=== PATIENT | female | born 1980 | race Caucasian/White ===

== ENCOUNTER → 2019-08-02 | Outpatient (CLI) | payer OTHER ==
--- NOTE | 2019-08-02 12:38 | CT ---
EXAMINATION TYPE: CT abdomen pelvis w con DATE OF EXAM: 08/02/2019 COMPARISON: 07/16/2014 HISTORY: left flank pain CT DLP: 895.1 mGycm Automated exposure control for dose reduction was used. CONTRAST: CT scan of the abdomen pelvis is performed with IV Contrast, patient injected with 100 mL of Isovue 3 00. FINDINGS- LUNG BASES- No significant abnormality is appreciated. LIVER/GB-gallbladder surgically absent.. PANCREAS- No gross abnormality is seen. SPLEEN- No gross abnormality is seen. ADRENALS- No gross abnormality is seen. KIDNEYS/BLADDER- no hydronephrosis, nephrolithiasis or renal mass. BOWEL-bowel gas pattern nonspecific. Rounded attenuation within the stomach most likely related retai loy content. There is gastric symptoms consider direct visualization. Appendix normal. LYMPH NODES- No greater than 1cm abdominal or pelvic lymph nodes areappreciated. Shotty adenopathy i n the periportal region noted with 1 pathologic size node measuring 1.1 cm. OSSEOUS STRUCTURES- No significant abnormality is seen. OTHER- aorta of normal caliber. No free fluid or free air. IMPRESSION- 1. No definite acute process. There is a rounded density within the stomach which may represent gastr ic content rather than mucosal lesion. Consider direct visualization. There is periportal shotty laurel opathy with a single lymph node measuring greater than a centimeter in the periportal and peripancrea tic region. 2. Postcholecystectomy changes.
== END | disposition home or self-care (01) ==
LOC: RADCTMAIN 09:49
PROVIDERS: ATTEND Family Medicine
DX: K31.89 Other diseases of stomach and duodenum (principal); R59.9 Enlarged lymph nodes, unspecified; Z90.49 Acquired absence of other specified parts of digestive tract; N80.9 Endometriosis, unspecified
CPT/HCPCS: 74177; Q9967

== ENCOUNTER → 2019-08-30 | Outpatient (CLI) | payer OTHER ==
[2019-08-30 11:03] LABS: Basophils # (A) 0.1 k/uL (0-0.2); Basophils % (A) 1 %; Eosinophils # (A) 0.2 k/uL (0-0.7); Eosinophils % (A) 3 %; HGB 12.4 gm/dL (11.4-16.0); Lymphocytes # (A) 1.5 k/uL (1.0-4.8); Lymphocytes % (A) 32 %; MCHC 32.6 g/dL (31.0-37.0); MCV 94.8 fL (80.0-100.0); Mean Platelet Volume 7.9; Monocytes # (A) 0.3 k/uL (0-1.0); Monocytes % (A) 6 %; Neutrophils # (A) 2.5 k/uL (1.3-7.7); Neutrophils % (A) 56 %; Platelet Count 191 k/uL (150-450); RBC 4.01 m/uL (3.80-5.40); RDW 13.1 % (11.5-15.5); WBC 4.5 k/uL (3.8-10.6)
[2019-08-30 18:23] LABS: ALT 49 U/L (8-44); AST 51 U/L (13-35); African American GFR (CKD) 92.7 (60.0-200.0); Alkaline Phosphatase 97 U/L (41-126); Bilirubin, Conjugated <0.20 mg/dL (0.20-0.40); Globulin 2.5 g/dL (1.6-3.3); Total Bilirubin 0.3 mg/dL (0.2-1.2); Total Protein 6.5 g/dL (6.2-8.2)
[2019-08-30 20:30] LABS: INR 0.92 (0.90-1.11); Prothrombin Time 9.9 sec (9.9-11.9)
== END ==
LOC: LABWHC1 09:37
PROVIDERS: ATTEND Physician Assistant
DX: B18.2 Chronic viral hepatitis C (principal)
CPT/HCPCS: 36415; 80076; 82565; 85025; 85610; 87522

== ENCOUNTER → 2019-10-08 | Day surgery (SDC) | payer OTHER ==
[2019-10-03 11:43] VITALS: BMI 38.7
[~2019-10-08] MED LIST: LACTATED RINGERS 1,000 ML IV SCH; LIDOCAINE 1% (10MG/ML) FOR IV START INTRADERMA PRN; LIDOCAINE 1% INJ 10MG/ML (20 ML MDV) ONE; PROPOFOL 10 MG/ML 20 ML VIAL IV ONE
[2019-10-08 10:09] VITALS: TEMP 97.5
--- NOTE | 2019-10-08 10:38 | P.GSHP ---
History of Present Illness H&P Date: 10/08/19 Chief Complaint: Epigastric pain 38-year-old female here today for upper endoscopy. Patient describes burning sharp pain in the epigastric region. Nonradiating. History of previous cholecystectomy. Takes antiacids daily for reflux. Recent CAT scan showed possible gastric lesion. Past Medical History Past Medical History: GERD/Reflux Additional Past Medical History / Comment(s): current abd pain, and diarrhea, states has "a shadow on MRI" states had pre CA cells prior to hysterectomy History of Any Multi-Drug Resistant Organisms: None Reported Past Surgical History: Cholecystectomy, Hysterectomy, Orthopedic Surgery Additional Past Surgical History / Comment(s): rt knee scope, Past Anesthesia/Blood Transfusion Reactions: No Reported Reaction Smoking Status: Current every day smoker - Past Family History Mother Family Medical History: No Reported History Medications and Allergies Home Medications Medication Instructions Recorded Confirmed Type Cholecalciferol [Vitamin D3 (25 2,000 unit PO DAILY 10/03/19 10/08/19 History Mcg = 1000 Iu)] Nicotine 21Mg/24Hr Patch [Habitrol] 1 each TRANSDERM DAILY 10/03/19 10/03/19 History Omeprazole 20 mg PO DAILY 10/03/19 10/03/19 History Propranolol [Inderal] 20 mg PO DAILY 10/03/19 10/03/19 History QUEtiapine [SEROquel] 100 mg PO HS 10/03/19 10/03/19 History Vortioxetine Hydrobromide 10 mg PO QAM 10/03/19 10/08/19 History [Trintellix] busPIRone HCl [Buspar] 10 mg PO TID 10/03/19 10/03/19 History Allergies Allergy/AdvReac Type Severity Reaction Status Date / Time amoxicillin Allergy Unknown Verified 10/08/19 10:06 Childhood Penicillins Allergy Unknown Verified 10/08/19 10:06 Childhood tramadol HCl [From Ultram] Allergy Dyspnea Verified 10/08/19 10:06 Surgical - Exam Vital Signs Temp Pulse Resp BP Pulse Ox 97.5 F L 89 17 122/79 99 10/08/19 10:08 10/08/19 10:08 10/08/19 10:08 10/08/19 10:08 10/08/19 10:08 Physical exam: General: Well-developed, well-nourished HEENT: Normocephalic, sclerae nonicteric Abdomen: Nontender, nondistended Extremities: No edema Neuro: Alert and oriented Assessment and Plan (1) Epigastric pain Narrative/Plan: Will proceed with upper endoscopy at this time Current Visit: Yes Status: Acute Code(s): R10.13 - EPIGASTRIC PAIN SNOMED Code(s): 33048956
--- NOTE | 2019-10-08 10:43 | P.PCN ---
Date of Procedure: 10/08/19 Procedure(s) Performed: Preoperative Dx: GERD, epigastric pain, abnormal CAT scan Postoperative Dx: Mild gastritis Procedure: EGD with Bx Anesthesia: Sedation Endoscopist: Dr. Mckee Specimens: Antrum Endoscopic Procedure: The patient was on the endoscopy table in the left decubitus position. The Olympus gastroscope was inserted into the oropharynx and passed under direct visualization to the region of the third portion of the duodenum. From that point the scope was slowly withdrawn inspecting all spangler rfaces carefully. There were no neoplastic inflammatory or polypoid lesions throughout the duodenum. The pylorus was widely patent. The stomach was carefully inspected. There was mild gastritis present. No mass lesion was seen. A biopsy of the antrum took place to rule out H. pylori. Retroflexion revealed a normal hiatus. The esophagus was then carefully examined. There were no neoplastic inflammatory or polypoid lesions throughout the visualized esophagus. The patient was then taken to the recovery room in stable condition per anesthesia guidelines. Recommendations: Await biopsies results. Continue antiacid therapy.
[2019-10-08 10:49] VITALS: RESP 16
[2019-10-08 11:21] VITALS: BP 107/73; PULSE 77
== END ==
LOC: ORWHC2ENDO 09:38
PROVIDERS: ATTEND Surgery
DX: K29.70 Gastritis, unspecified, without bleeding (principal); K31.9 Disease of stomach and duodenum, unspecified; K21.9 Gastro-esophageal reflux disease without esophagitis; F41.9 Anxiety disorder, unspecified; F31.9 Bipolar disorder, unspecified; Z88.0 Allergy status to penicillin; Z88.5 Allergy status to narcotic agent; Z79.899 Other long term (current) drug therapy; Z90.49 Acquired absence of other specified parts of digestive tract; Z90.710 Acquired absence of both cervix and uterus; Z98.890 Other specified postprocedural states
CPT/HCPCS: 88305; 43239; J2001; J2704

== ENCOUNTER → 2019-10-22 | Outpatient (CLI) | payer OTHER ==
--- NOTE | 2019-10-22 09:39 | MR ---
EXAMINATION TYPE: MR brain wo/w con DATE OF EXAM: 10/22/2019 COMPARISON: None HISTORY: Pseudo tumor TECHNIQUE: Multiplanar, multisequence images of the brain and brainstem is performed without and with IV contras t, utilizing 9 mL intravenous Gadavist . FINDINGS: Artifact is noted due to patient's piercing base. Diffusion weighted images demonstrate no evidence of a recent infarct or other diffusion abnormality. There is no extra-axial fluid collectio n. Scattered hyperintensities are present on inversion recovery T2-weighted sequences in the frontal lobes, approximately 3-5 lesions, the largest measures approximately 4 mm on axial image #16 in the r ight frontal lobe. The ventricular system and cisternal spaces are normal in size and appearance. Th e brain volume is age appropriate. Midline structures demonstrate normal morphology. The craniocervical junction appears within normal limits. Post contrast images demonstrate no abnormal enhancement. The dural venous sinuses appear pa tent. The visualized sinuses are remarkable for minimal inflammatory change present in the sphenoid s inus, possibly left mastoid air cells and the globes are intact, orbits are symmetric and unremarkabl e. There are normal vascular flow voids. IMPRESSION: Nonspecific white matter demyelination, consider hypertension, migraine headaches, vascul itis or Lyme disease, multiple sclerosis felt to be less likely. Mild sinus disease.
== END | disposition home or self-care (01) ==
LOC: RADMRIMAIN 08:26
PROVIDERS: ATTEND Ophthalmology
DX: R90.82 White matter disease, unspecified (principal); G93.2 Benign intracranial hypertension; G44.221 Chronic tension-type headache, intractable
CPT/HCPCS: 70553; A9585

== ENCOUNTER → 2019-11-14 | Outpatient (CLI) | payer OTHER ==
--- NOTE | 2019-11-14 14:59 | MM ---
Reason for exam: screening (asymptomatic). Baseline mammogram. History: Patient is postmenopausal. Family history of breast cancer in paternal aunt at age 36 and breast cancer in paternal grandmother at age 87. Took hormonal contraceptives beginning at age 13. Took estrogen for 7 months beginning at age 24. Physical Findings: Nurse did not find any significant physical abnormalities on exam. MG Screening Mammo w CAD Bilateral CC and MLO view(s) were taken. There are scattered fibroglandular densities. There is no discrete abnormality. These results were verbally communicated with the patient and result sheet given to the patient on 11/14/19. ASSESSMENT: Negative, BI-RAD 1 RECOMMENDATION: Routine screening mammogram of both breasts in 1 year.
== END | disposition home or self-care (01) ==
LOC: RADMAMWWP 13:28
PROVIDERS: ATTEND Family Medicine
DX: Z12.39 Encounter for other screening for malignant neoplasm of breast (principal)
CPT/HCPCS: 77067

== ENCOUNTER 2020-02-06 11:48 | Emergency (ER) | payer OTHER ==
[2020-02-06 12:01] VITALS: BP 116/84; PULSE 75; RESP 18; TEMP 98.1
[2020-02-06] MEDS ORDERED: MORPHINE SULFATE 4 MG/ML SYRINGE IV STA (12:16)
[2020-02-06] MEDS ORDERED: SODIUM CHLORIDE 0.9% 1,000 ML IV STA (12:16)
--- NOTE | 2020-02-06 12:33 | ED ---
General Adult HPI - General Chief complaint: Abdominal Pain Stated complaint: Abd Pain Time Seen by Provider: 02/06/20 12:08 Source: patient, RN notes reviewed, old records reviewed Mode of arrival: ambulatory Limitations: no limitations - History of Present Illness Initial comments: 39-year-old female presenting for evaluation of abdominal pain over the past 2 days. First began as only right lower quadrant abdominal pain, this has progressed to nausea vomiting and diarrhea. She's had several episodes of diarrhea and one episode of vomiting. She has a previous surgical history of both hysterectomy and cholecystectomy. Denies fever. Denies upper abdominal pain. She does report urinary frequency, no dysuria or hematuria. - Related Data Home Medications Medication Instructions Recorded Confirmed Cholecalciferol [Vitamin D3 (25 2,000 unit PO DAILY 10/03/19 10/08/19 Mcg = 1000 Iu)] Nicotine 21Mg/24Hr Patch [Habitrol] 1 each TRANSDERM DAILY 10/03/19 10/03/19 Omeprazole 20 mg PO DAILY 10/03/19 10/03/19 Propranolol [Inderal] 20 mg PO DAILY 10/03/19 10/03/19 QUEtiapine [SEROquel] 100 mg PO HS 10/03/19 10/03/19 Vortioxetine Hydrobromide 10 mg PO QAM 10/03/19 10/08/19 [Trintellix] busPIRone HCl [Buspar] 10 mg PO TID 10/03/19 10/03/19 Previous Rx's Medication Instructions Recorded Cephalexin [Keflex] 500 mg PO Q12HR #20 cap 02/06/20 HYDROcodone/APAP 5-325MG [[place] 1 tab PO Q6HR PRN #12 tab 02/06/20 5-325] Ibuprofen [Motrin] 600 mg PO Q8HR PRN #24 tab 02/06/20 Tamsulosin [Flomax] 0.4 mg PO DAILY #30 cap 02/06/20 Allergies Allergy/AdvReac Type Severity Reaction Status Date / Time amoxicillin Allergy Unknown Verified 02/06/20 11:58 Childhood Penicillins Allergy Unknown Verified 02/06/20 11:58 Childhood tramadol HCl [From Ultram] Allergy Dyspnea Verified 02/06/20 11:58 Review of Systems ROS Statement: Those systems with pertinent positive or pertinent negative responses have been documented in the HPI. ROS Other: All systems not noted in ROS Statement are negative. Past Medical History Past Medical History: No Reported History Additional Past Medical History / Comment(s): nephrolithiasis History of Any Multi-Drug Resistant Organisms: None Reported Past Surgical History: Cholecystectomy, Hysterectomy, Orthopedic Surgery Past Psychological History: Bipolar, Depression Smoking Status: Current every day smoker Past Alcohol Use History: None Reported Past Drug Use History: None Reported General Exam Limitations: no limitations General appearance: alert, in no apparent distress Head exam: Present: atraumatic, normocephalic Eye exam: Present: normal appearance, PERRL ENT exam: Present: mucous membranes dry Neck exam: Present: normal inspection. Absent: tenderness, meningismus Respiratory exam: Present: normal lung sounds bilaterally. Absent: respiratory distress, wheezes Cardiovascular Exam: Present: regular rate, normal rhythm GI/Abdominal exam: Present: soft, tenderness (Right lower quadrant). Absent: distended, guarding, rebound Extremities exam: Present: normal inspection, normal capillary refill. Absent: pedal edema, calf tenderness Neurological exam: Present: alert, oriented X3, CN II-XII intact, motor sensory deficit Psychiatric exam: Present: normal affect, normal mood Skin exam: Present: warm, dry, intact. Absent: cyanosis, diaphoretic Course Vital Signs 02/06/20 11:58 Temperature 98.1 F Pulse Rate 75 Respiratory 18 Rate Blood Pressure 116/84 O2 Sat by Pulse 97 Oximetry Medical Decision Making - Medical Decision Making 39-year-old female with right lower quadrant abdominal pain for the past 2 days. Minimal tenderness on exam. Patient's has stable vitals, afebrile. She has normal CBC, CMP shows a creatinine 1.1 likely secondary to dehydration. She has urinalysis with both RBCs as well as white blood cell count and bacteria. Urine culture is performed and these results are pending. CT shows a 2 mm stone in the right ureter vesicular junction with mild hydroureter and hydronephrosis. She is given 2 g Rocephin the emergency department. Patient is well-appearing with controlled pain on reevaluation. She's given strict return parameters. She is prescribed pain medication, Flomax, and antibiotics awaiting urine culture results. She's given follow-up with urology. - Lab Data Result diagrams: 02/06/20 12:36 02/06/20 12:36 Lab Results 02/06/20 02/06/20 02/06/20 Range/Units 12:36 12:36 12:36 WBC 6.9 (3.8-10.6) k/uL RBC 4.46 (3.80-5.40) m/uL Hgb 14.6 (11.4-16.0) gm/dL Hct 41.4 (34.0-46.0) % MCV 92.9 (80.0-100.0) fL MCH 32.8 (25.0-35.0) pg MCHC 35.3 (31.0-37.0) g/dL RDW 12.4 (11.5-15.5) % Plt Count 266 (150-450) k/uL MPV 7.3 Neutrophils % 61 % Lymphocytes % 28 % Monocytes % 5 % Eosinophils % 3 % Basophils % 1 % Neutrophils # 4.2 (1.3-7.7) k/uL Lymphocytes # 1.9 (1.0-4.8) k/uL Monocytes # 0.4 (0-1.0) k/uL Eosinophils # 0.2 (0-0.7) k/uL Basophils # 0.1 (0-0.2) k/uL Sodium 140 (137-145) mmol/L Potassium 4.5 (3.5-5.1) mmol/L Chloride 114 H (98-107) mmol/L Carbon Dioxide 21 L (22-30) mmol/L Anion Gap 5 mmol/L BUN 14 (7-17) mg/dL Creatinine 1.10 H (0.52-1.04) mg/dL Est GFR (CKD-EPI)AfAm 72 (>60 ml/min/1.73 sqM) Est GFR (CKD-EPI)NonAf 63 (>60 ml/min/1.73 sqM) Glucose 112 H (74-99) mg/dL Calcium 9.1 (8.4-10.2) mg/dL Total Bilirubin 0.5 (0.2-1.3) mg/dL AST 28 (14-36) U/L ALT 23 (4-34) U/L Alkaline Phosphatase 123 (38-126) U/L Total Protein 7.0 (6.3-8.2) g/dL Albumin 4.0 (3.5-5.0) g/dL Amylase 45 (30-110) U/L Lipase 211 (23-300) U/L Urine Color Yellow Urine Appearance Turbid H (Clear) Urine pH 5.5 (5.0-8.0) Ur Specific [place] 1.023 (1.001-1.035) Urine Protein 1+ H (Negative) Urine Glucose (UA) Negative (Negative) Urine Ketones Negative (Negative) Urine Blood Moderate H (Negative) Urine Nitrite Negative (Negative) Urine Bilirubin Negative (Negative) Urine Urobilinogen 2.0 (<2.0) mg/dL Ur Leukocyte Esterase Moderate H (Negative) Urine RBC 154 H (0-5) /hpf Urine WBC 33 H (0-5) /hpf Ur Squamous Epith Cells 10 H (0-4) /hpf Urine Bacteria Many H (None) /hpf Disposition Clinical Impression: UTI (urinary tract infection), Renal colic on right side Disposition: HOME SELF-CARE Instructions (If sedation given, give patient instructions): Urinary Tract Infection in Women (ED), Renal Colic (ED) Prescriptions: Tamsulosin [Flomax] 0.4 mg PO DAILY #30 cap Cephalexin [Keflex] 500 mg PO Q12HR #20 cap Ibuprofen [Motrin] 600 mg PO Q8HR PRN #24 tab PRN Reason: Pain HYDROcodone/APAP 5-325MG [[place] 5-325] 1 tab PO Q6HR PRN #12 tab PRN Reason: Pain Is patient prescribed a controlled substance at d/c from ED?: No Referrals: Daphne Alvarez MD [Primary Care Provider] - 1-2 days Denilson Heredia MD [STAFF PHYSICIAN] - 1-2 days Time of Disposition: 14:52
[2020-02-06 12:44] LABS: Basophils # (A) 0.1 k/uL (0-0.2); Basophils % (A) 1 %; Eosinophils # (A) 0.2 k/uL (0-0.7); Eosinophils % (A) 3 %; HCT 41.4 % (34.0-46.0); HGB 14.6 gm/dL (11.4-16.0); Lymphocytes # (A) 1.9 k/uL (1.0-4.8); Lymphocytes % (A) 28 %; MCH 32.8 pg (25.0-35.0); MCHC 35.3 g/dL (31.0-37.0); MCV 92.9 fL (80.0-100.0); Mean Platelet Volume 7.3; Monocytes # (A) 0.4 k/uL (0-1.0); Monocytes % (A) 5 %; Neutrophils # (A) 4.2 k/uL (1.3-7.7); Neutrophils % (A) 61 %; Platelet Count 266 k/uL (150-450); RBC 4.46 m/uL (3.80-5.40); RDW 12.4 % (11.5-15.5); WBC 6.9 k/uL (3.8-10.6)
[2020-02-06 12:49] LABS: Appearance,Urine Turbid (Clear); Bacteria,Urine Many /hpf; Bilirubin,Urine Negative (Negative); Blood,Urine Moderate (Negative); Color,Urine Yellow; Glucose,Urine (UA) Negative (Negative); Ketones,Urine Negative (Negative); Leukocyte Esterase,Urine Moderate (Negative); Nitrite,Urine Negative (Negative); PH, Urine 5.5 (5.0-8.0); Protein,Urine 1+ (Negative); RBC,Urine 154 /hpf (0-5); Specific Gravity,Urine 1.023 (1.001-1.035); Squamous Epithelial Cell,Urine 10 /hpf (0-4); WBC,Urine 33 /hpf (0-5)
[2020-02-06 13:03] LABS: Calcium 9.1 mg/dL (8.4-10.2); Potassium 4.5 mmol/L (3.5-5.1); Total Bilirubin 0.5 mg/dL (0.2-1.3)
[2020-02-06] MEDS ORDERED: KETOROLAC 15 MG/ML 1 ML VIAL IVP STA (14:22)
--- NOTE | 2020-02-06 14:31 | CT ---
EXAMINATION TYPE: CT abdomen pelvis w con DATE OF EXAM: 02/06/2020 COMPARISON: 08/02/2019 HISTORY: 39-year-old female Right lower quadrant pain with nausea. TECHNIQUE: Contiguous axial scanning of the abdomen and pelvis following administration of 100 ml Iso uri 300 IV contrast. Delayed images through the kidneys and coronal/sagittal reconstructions perform ed. CT DLP: 1235.4 mGycm Automated exposure control for dose reduction was used. FINDINGS: Heart normal size without pericardial lung bases clear without pleural effusion. Liver normal size with low attenuation suggesting underlying fatty infiltration. Portal venous system is patent. No biliary ductal dilatation. Adrenal glands, left kidney, spleen, and pancreas appear within normal limits. There is mild right-sided hydronephrosis and hydroureter and delayed excretion of contrast from the r ight kidney with a punctate 2 mm calculus at the right UVJ. No dilated small bowel, free fluid, free air. No mesenteric or retroperitoneal lymphadenopathy. Normal appendix. No significant stool burden. No pericolonic inflammatory change. Bladder is collapsed. Pelvic phlebolith. Uterus surgically absent. Neither ovary is visualized. No ab normal fluid collection in the pelvis or pelvic lymphadenopathy. Bones: No osseous destructive process. IMPRESSION: MILD OBSTRUCTIVE UROPATHY ON THE RIGHT SECONDARY TO A SUSPECTED PUNCTATE 1-2 MM RIGHT UVJ CALCULUS.
== END 2020-02-06 15:40 | disposition home or self-care (01) ==
LOC: EC 11:48
DX: N39.0 Urinary tract infection, site not specified (principal); N23 Unspecified renal colic; N13.2 Hydronephrosis with renal and ureteral calculous obstruction; N13.4 Hydroureter; F32.9 Major depressive disorder, single episode, unspecified; F17.200 Nicotine dependence, unspecified, uncomplicated; Z79.899 Other long term (current) drug therapy; Z88.0 Allergy status to penicillin; Z88.5 Allergy status to narcotic agent; Z90.710 Acquired absence of both cervix and uterus; Z90.49 Acquired absence of other specified parts of digestive tract; Z87.442 Personal history of urinary calculi
CPT/HCPCS: 36415; 80053; 82150; 83690; 85025; 81001; 87086; 74177; 99285; 96365; 96375 ×2; 96361 ×2; J2270; J0696; J1885; Q9967

== ENCOUNTER 2020-10-06 11:44 | Emergency (ER) | payer OTHER ==
[2020-10-06 11:48] VITALS: TEMP 97.8
[2020-10-06] MEDS ORDERED: SODIUM CHLORIDE 0.9% 1,000 ML IV STA (12:38)
[2020-10-06] MEDS ORDERED: HYDROmorphone 0.5 MG/0.5 ML SYRINGE IVP STA (12:39)
[2020-10-06 12:42] LABS: Basophils # (A) 0.1 k/uL (0-0.2); Basophils % (A) 1 %; Eosinophils # (A) 0.1 k/uL (0-0.7); Eosinophils % (A) 2 %; HGB 14.1 gm/dL (11.4-16.0); Hypochromasia Slight; Lymphocytes # (A) 2.2 k/uL (1.0-4.8); Lymphocytes % (A) 29 %; MCH 32.8 pg (25.0-35.0); MCHC 32.8 g/dL (31.0-37.0); Macrocytosis Slight; Mean Platelet Volume 8.7; Monocytes # (A) 0.4 k/uL (0-1.0); Monocytes % (A) 5 %; Neutrophils # (A) 4.7 k/uL (1.3-7.7); Neutrophils % (A) 62 %; Platelet Count 217 k/uL (150-450); RDW 13.7 % (11.5-15.5); WBC 7.6 k/uL (3.8-10.6)
--- NOTE | 2020-10-06 12:56 | ED ---
General Adult HPI - General Chief complaint: Urogenital Stated complaint: kidney stones Time Seen by Provider: 10/06/20 11:56 Source: family Mode of arrival: ambulatory Limitations: no limitations - History of Present Illness Initial comments: 39-year-old female presents to the emergency room for a chief complaint of low back pain. Patient reports that a couple days ago she started to get dysuria. She then started to have some low back pain that felt like her kidney stones. Patient states that she called her doctor and had an x-ray done outpatient which did not show anything. States they are culturing her urine. Patient denies any fevers or chills. Patient has also had diarrhea and some abdominal pain. She denies weakness of the legs. Patient has no other complaints at this time including shortness of breath, chest pain, nausea or vomiting, headache, or visual changes. - Related Data Home Medications Medication Instructions Recorded Confirmed Omeprazole 20 mg PO DAILY 10/03/19 10/06/20 Vortioxetine Hydrobromide 10 mg PO QAM 10/03/19 10/06/20 [Trintellix] ARIPiprazole [Abilify] 10 mg PO DAILY 10/06/20 10/06/20 Dextroamphetamine/Amphetamine 10 mg PO QAM 10/06/20 10/06/20 [Adderall Xr] Ibuprofen [Motrin Ib] 400 mg PO Q8H PRN 10/06/20 10/06/20 buPROPion HCL [buPROPion HCL Xl] 150 mg PO DAILY 10/06/20 10/06/20 busPIRone HCL 15 mg PO TID 10/06/20 10/06/20 Allergies Allergy/AdvReac Type Severity Reaction Status Date / Time amoxicillin Allergy Unknown Verified 10/06/20 13:28 Childhood Penicillins Allergy Unknown Verified 10/06/20 13:28 Childhood tramadol HCl [From Ultram] Allergy Dyspnea Verified 10/06/20 13:28 Review of Systems ROS Statement: Those systems with pertinent positive or pertinent negative responses have been documented in the HPI. ROS Other: All systems not noted in ROS Statement are negative. Past Medical History Past Medical History: No Reported History Additional Past Medical History / Comment(s): nephrolithiasis History of Any Multi-Drug Resistant Organisms: None Reported Past Surgical History: Cholecystectomy, Hysterectomy, Orthopedic Surgery Past Psychological History: Bipolar, Depression Smoking Status: Current every day smoker Past Alcohol Use History: None Reported Past Drug Use History: None Reported General Exam Limitations: no limitations General appearance: alert, in no apparent distress Head exam: Present: atraumatic Eye exam: Present: normal appearance, PERRL, EOMI. Absent: scleral icterus, conjunctival injection ENT exam: Present: normal exam, mucous membranes moist Neck exam: Present: normal inspection, full ROM. Absent: tenderness Respiratory exam: Present: normal lung sounds bilaterally. Absent: respiratory distress, wheezes Cardiovascular Exam: Present: regular rate, normal rhythm, normal heart sounds GI/Abdominal exam: Present: soft, normal bowel sounds. Absent: distended, tenderness Back exam: Absent: CVA tenderness (R), CVA tenderness (L) Neurological exam: Present: alert Course Vital Signs 10/06/20 11:46 Temperature 97.8 F Pulse Rate 69 Respiratory 18 Rate Blood Pressure 115/77 O2 Sat by Pulse 98 Oximetry - Reevaluation(s) Reevaluation #1: 10/06/20 12:55 Post void residual is 12 mL Medical Decision Making - Medical Decision Making Vitals are stable. Patient presents for low back pain that feels similar to kid jeanine stones in the past as well as dysuria. CBC CMP unremarkable. Urinalysis does not show any obvious evidence of infection. We will culture this. CT abdomen and pelvis shows a correlate for possible cystitis however again urinalysis is not significant in terms of infection. At this time patient may have passed a stone. Recommend she follow up with her doctor. She will return here for any worsening symptoms. - Lab Data Result diagrams: 10/06/20 12:29 10/06/20 12:29 Lab Results 10/06/20 10/06/20 10/06/20 Range/Units 12:29 12:29 12:29 WBC 7.6 (3.8-10.6) k/uL RBC 4.30 (3.80-5.40) m/uL Hgb 14.1 (11.4-16.0) gm/dL Hct 43.0 (34.0-46.0) % MCV 100.0 (80.0-100.0) fL MCH 32.8 (25.0-35.0) pg MCHC 32.8 (31.0-37.0) g/dL RDW 13.7 (11.5-15.5) % Plt Count 217 (150-450) k/uL MPV 8.7 Neutrophils % 62 % Lymphocytes % 29 % Monocytes % 5 % Eosinophils % 2 % Basophils % 1 % Neutrophils # 4.7 (1.3-7.7) k/uL Lymphocytes # 2.2 (1.0-4.8) k/uL Monocytes # 0.4 (0-1.0) k/uL Eosinophils # 0.1 (0-0.7) k/uL Basophils # 0.1 (0-0.2) k/uL Hypochromasia Slight Macrocytosis Slight Sodium 143 (137-145) mmol/L Potassium 3.8 (3.5-5.1) mmol/L Chloride 114 H (98-107) mmol/L Carbon Dioxide 21 L (22-30) mmol/L Anion Gap 8 mmol/L BUN 9 (7-17) mg/dL Creatinine 1.06 H (0.52-1.04) mg/dL Est GFR (CKD-EPI)AfAm 76 (>60 ml/min/1.73 sqM) Est GFR (CKD-EPI)NonAf 66 (>60 ml/min/1.73 sqM) Glucose 98 (74-99) mg/dL Plasma Lactic Acid Sunday (0.7-2.0) mmol/L Calcium 9.5 (8.4-10.2) mg/dL Total Bilirubin 0.2 (0.2-1.3) mg/dL AST 30 (14-36) U/L ALT 18 (4-34) U/L Alkaline Phosphatase 95 (38-126) U/L Total Protein 6.5 (6.3-8.2) g/dL Albumin 4.2 (3.5-5.0) g/dL Amylase 34 (30-110) U/L Lipase 218 (23-300) U/L Urine Color Yellow Urine Appearance Cloudy H (Clear) Urine pH 6.5 (5.0-8.0) Ur Specific [place] 1.016 (1.001-1.035) Urine Protein Negative (Negative) Urine Glucose (UA) Negative (Negative) Urine Ketones Negative (Negative) Urine Blood Negative (Negative) Urine Nitrite Negative (Negative) Urine Bilirubin Negative (Negative) Urine Urobilinogen <2.0 (<2.0) mg/dL Ur Leukocyte Esterase Negative (Negative) Urine WBC 5 (0-5) /hpf Ur Squamous Epith Cells 1 (0-4) /hpf Calcium Oxalate Crystal Many H (None) /hpf Hyaline Casts 1 (0-2) /lpf Urine Mucus Rare H (None) /hpf 10/06/20 Range/Units 12:29 WBC (3.8-10.6) k/uL RBC (3.80-5.40) m/uL Hgb (11.4-16.0) gm/dL Hct (34.0-46.0) % MCV (80.0-100.0) fL MCH (25.0-35.0) pg MCHC (31.0-37.0) g/dL RDW (11.5-15.5) % Plt Count (150-450) k/uL MPV Neutrophils % % Lymphocytes % % Monocytes % % Eosinophils % % Basophils % % Neutrophils # (1.3-7.7) k/uL Lymphocytes # (1.0-4.8) k/uL Monocytes # (0-1.0) k/uL Eosinophils # (0-0.7) k/uL Basophils # (0-0.2) k/uL Hypochromasia Macrocytosis Sodium (137-145) mmol/L Potassium (3.5-5.1) mmol/L Chloride (98-107) mmol/L Carbon Dioxide (22-30) mmol/L Anion Gap mmol/L BUN (7-17) mg/dL Creatinine (0.52-1.04) mg/dL Est GFR (CKD-EPI)AfAm (>60 ml/min/1.73 sqM) Est GFR (CKD-EPI)NonAf (>60 ml/min/1.73 sqM) Glucose (74-99) mg/dL Plasma Lactic Acid Sunday 1.4 (0.7-2.0) mmol/L Calcium (8.4-10.2) mg/dL Total Bilirubin (0.2-1.3) mg/dL AST (14-36) U/L ALT (4-34) U/L Alkaline Phosphatase (38-126) U/L Total Protein (6.3-8.2) g/dL Albumin (3.5-5.0) g/dL Amylase (30-110) U/L Lipase (23-300) U/L Urine Color Urine Appearance (Clear) Urine pH (5.0-8.0) Ur Specific [place] (1.001-1.035) Urine Protein (Negative) Urine Glucose (UA) (Negative) Urine Ketones (Negative) Urine Blood (Negative) Urine Nitrite (Negative) Urine Bilirubin (Negative) Urine Urobilinogen (<2.0) mg/dL Ur Leukocyte Esterase (Negative) Urine WBC (0-5) /hpf Ur Squamous Epith Cells (0-4) /hpf Calcium Oxalate Crystal (None) /hpf Hyaline Casts (0-2) /lpf Urine Mucus (None) /hpf Disposition Clinical Impression: Back pain, Dysuria Disposition: HOME SELF-CARE Condition: Good Instructions (If sedation given, give patient instructions): Back Pain (ED) Additional Instructions: Follow up on culture results. Please follow-up with your doctor in one to 2 days. Return to the emergency room for any worsening symptoms. Is patient prescribed a controlled substance at d/c from ED?: No Referrals: Daphne Alvarez MD [Primary Care Provider] - 1-2 days Time of Disposition: 13:52
[2020-10-06 13:03] LABS: Albumin 4.2 g/dL (3.5-5.0); Calcium 9.5 mg/dL (8.4-10.2); Potassium 3.8 mmol/L (3.5-5.1); Total Bilirubin 0.2 mg/dL (0.2-1.3); Total Protein 6.5 g/dL (6.3-8.2)
[2020-10-06 13:14] LABS: Appearance,Urine Cloudy (Clear); Bilirubin,Urine Negative (Negative); Blood,Urine Negative (Negative); Calcium Oxalate Crystals,Urine Many /hpf; Color,Urine Yellow; Glucose,Urine (UA) Negative (Negative); Hyaline Casts,Urine 1 /lpf (0-2); Ketones,Urine Negative (Negative); Leukocyte Esterase,Urine Negative (Negative); Mucus,Urine Rare /hpf; Nitrite,Urine Negative (Negative); PH, Urine 6.5 (5.0-8.0); Protein,Urine Negative (Negative); Specific Gravity,Urine 1.016 (1.001-1.035); Squamous Epithelial Cell,Urine 1 /hpf (0-4); Urobilinogen,Urine <2.0 mg/dL (<2.0); WBC,Urine 5 /hpf (0-5)
--- NOTE | 2020-10-06 13:36 | CT ---
EXAMINATION TYPE: CT abdomen pelvis w con DATE OF EXAM: 10/06/2020 COMPARISON: ct 02/06/2020 HISTORY: Bilateral flank pain and hematuria. CT DLP: 840.9 mGycm Automated exposure control for dose reduction was used. TECHNIQUE: Helical acquisition of images from the lung bases through the pelvis have been completed. CONTRAST: Performed without Oral Contrast and with IV Contrast, patient injected with 100ml mL of Isovue 300. FINDINGS: umbilical hernia contains fat, metallic density at this level due to jewelry. LUNG BASES: No significant abnormality is appreciated. AORTA: No significant abnormality is appreciated. LIVER/GB: Patient is post cholecystectomy, low attenuation to the liver may be due to hepatic steatos is. PANCREAS: No significant abnormality is seen. SPLEEN: No significant abnormality is seen. ADRENALS: No significant abnormality is seen. KIDNEYS: No significant abnormality is seen. REPRODUCTIVE ORGANS: Not seen BOWEL: No significant abnormality is seen. FREE AIR: No Free Air visible. ASCITES: None visible. PELVIC ADENOPATHY: None visualized. RETROPERITONEAL ADENOPATHY: No Retroperitoneal Adenopathy visible. URINARY BLADDER: contracted, hazy density noted about the bladder. OSSEOUS STRUCTURES: No significant abnormality is seen. IMPRESSION: Correlate for possible cystitis, there is hepatic steatosis. Post op change.
[2020-10-06] MEDS ORDERED: cefTRIAXone IN SWFI 1,000 MG/10 ML SYRINGE IVP STA (13:59)
[2020-10-06] MEDS ORDERED: DOXYCYCLINE 100 MG CAP PO STA (14:00)
[2020-10-06 14:32] VITALS: BP 120/82; PULSE 58; RESP 16
[2020-10-07 16:54] LABS: C. trachomatis,PCR Negative (Neg,Equiv); Chlamydia trachomatis Source Urine; N. gonorrhoeae,PCR Negative (Neg,Equiv); Neisseria Source Urine
== END 2020-10-06 14:31 | disposition home or self-care (01) ==
LOC: EC 11:44
DX: M54.5 Low back pain (principal); R30.0 Dysuria; F31.9 Bipolar disorder, unspecified; F17.200 Nicotine dependence, unspecified, uncomplicated; Z88.0 Allergy status to penicillin; Z88.1 Allergy status to other antibiotic agents; Z90.49 Acquired absence of other specified parts of digestive tract; Z90.710 Acquired absence of both cervix and uterus
CPT/HCPCS: 99284; 96374; 96375; 96361; 36415; 80053; 82150; 83605; 83690; 85025; 81001; 87491; 87591; 74177; J0696; J1170; Q9967

== ENCOUNTER 2021-06-23 09:03 | Emergency (ER) | payer OTHER ==
[2021-06-23 09:07] VITALS: TEMP 98.4
[2021-06-23] MEDS ORDERED: ACETAMINOPHEN TAB 325 MG TAB PO STA (09:24)
--- NOTE | 2021-06-23 09:38 | ED ---
ENT HPI - General Chief complaint: ENT Stated complaint: ear pain Time Seen by Provider: 06/23/21 09:11 Source: patient, RN notes reviewed Mode of arrival: ambulatory Limitations: no limitations - History of Present Illness Initial comments: 40-year-old female presents emergency Department with chief complaint of ear pain. Patient states she developed ear pain last 2 days with fever body aches, chills, mild nasal congestion and cough. Patient states that she's had no real sick contacts. No prior issues. She states pain this feels like pressure in her ear. Patient denies any GI symptoms including nausea vomiting diarrhea constipation. - Related Data Home Medications Medication Instructions Recorded Confirmed Omeprazole 20 mg PO DAILY 10/03/19 10/06/20 Vortioxetine Hydrobromide 10 mg PO QAM 10/03/19 10/06/20 [Trintellix] ARIPiprazole [Abilify] 10 mg PO DAILY 10/06/20 10/06/20 Dextroamphetamine/Amphetamine 10 mg PO QAM 10/06/20 10/06/20 [Adderall Xr] Ibuprofen [Motrin Ib] 400 mg PO Q8H PRN 10/06/20 10/06/20 buPROPion HCL [buPROPion HCL Xl] 150 mg PO DAILY 10/06/20 10/06/20 busPIRone HCL 15 mg PO TID 10/06/20 10/06/20 Previous Rx's Medication Instructions Recorded Azithromycin [Zithromax Z-pack (6 0 mg PO DIRECTED #1 packet 06/23/21 tabs)] Allergies Allergy/AdvReac Type Severity Reaction Status Date / Time amoxicillin Allergy Unknown Verified 06/23/21 09:06 Childhood Penicillins Allergy Unknown Verified 06/23/21 09:06 Childhood tramadol HCl [From Ultram] Allergy Dyspnea Verified 06/23/21 09:06 Review of Systems ROS Statement: Those systems with pertinent positive or pertinent negative responses have been documented in the HPI. ROS Other: All systems not noted in ROS Statement are negative. Past Medical History Past Medical History: No Reported History Additional Past Medical History / Comment(s): nephrolithiasis History of Any Multi-Drug Resistant Organisms: None Reported Past Surgical History: Cholecystectomy, Hysterectomy, Orthopedic Surgery Past Psychological History: Bipolar, Depression Smoking Status: Current every day smoker Past Alcohol Use History: None Reported Past Drug Use History: None Reported General Exam Limitations: no limitations General appearance: alert, in no apparent distress Head exam: Present: atraumatic, normocephalic, normal inspection Eye exam: Present: normal appearance, PERRL, EOMI. Absent: scleral icterus, conjunctival injection, periorbital swelling ENT exam: Present: normal exam, normal oropharynx, mucous membranes moist Neck exam: Present: normal inspection, full ROM. Absent: tenderness, meningismus, lymphadenopathy Respiratory exam: Present: normal lung sounds bilaterally. Absent: respiratory distress, wheezes, rales, rhonchi, stridor Cardiovascular Exam: Present: regular rate, normal rhythm, normal heart sounds. Absent: systolic murmur, diastolic murmur, rubs, gallop, clicks Course Vital Signs 06/23/21 06/23/21 09:04 09:37 Temperature 98.4 F Pulse Rate 79 Respiratory 18 18 Rate Blood Pressure 133/85 O2 Sat by Pulse 98 Oximetry Medical Decision Making - Medical Decision Making Patient negative COVID-19, negative influenza patient's has upper respiratory infection, otalgia. Patient discharged in stable condition return parameters were discussed. - Lab Data Lab Results 06/23/21 06/23/21 Range/Units 09:10 09:31 Coronavirus (PCR) Not Detected (Not Detectd) Influenza Type A RNA Not Detected (Not Detectd) Influenza Type B (PCR) Not Detected (Not Detectd) Disposition Clinical Impression: Otalgia, Upper respiratory infection Disposition: HOME SELF-CARE Condition: Stable Instructions (If sedation given, give patient instructions): Earache (ED) Additional Instructions: Please return to the Emergency Department if symptoms worsen or any other concerns. Prescriptions: Azithromycin [Zithromax Z-pack (6 tabs)] 0 mg PO DIRECTED #1 packet Is patient prescribed a controlled substance at d/c from ED?: No Referrals: Daphne Alvarez MD [Primary Care Provider] - 1-2 days Time of Disposition: 10:01
[2021-06-23 10:20] VITALS: BP 131/89; PULSE 77; RESP 16
== END 2021-06-23 10:20 | disposition home or self-care (01) ==
LOC: EC 09:03
DX: J06.9 Acute upper respiratory infection, unspecified (principal); H92.09 Otalgia, unspecified ear; F17.200 Nicotine dependence, unspecified, uncomplicated; Z20.822 Contact with and (suspected) exposure to COVID-19; Z88.0 Allergy status to penicillin; Z88.6 Allergy status to analgesic agent
CPT/HCPCS: 87502; 87635; 99284

== ENCOUNTER → 2021-07-20 | Outpatient (CLI) | payer OTHER ==
--- NOTE | 2021-07-20 18:04 | US ---
EXAMINATION TYPE: US mass soft tissue chest/back DATE OF EXAM: 07/20/2021 COMPARISON: NONE CLINICAL HISTORY: 40-year-old female R22.2 Swelling, Mass, Lump. Patient states feeling a lump on rig ht lower back at SI joint. Lump is soft and mobile. Technique: Targeted ultrasound examination of the lower right side of the back adjacent to the SI woody nt. FINDINGS: System Software Developer notes: Area of concern scanned. Nonvascular lesion seen = 2.0 x 2.0 x 1.2 cm Images to hypoechoic to isoechoic circumscribed oval area that seems to localize to the subcutaneous adipose layer and abut the underlying superficial muscular fascia. It appears to elongate on transver se images and compresses slightly. IMPRESSION: Targeted scanning along the lower right side of the back adjacent to the SI joint. The casting associate in dicates a soft and mobile area. Ultrasound shows a 2.0 x 2.0 x 1.2 cm oval isoechoic structure in the subcutaneous adipose layer that is slightly compressible. Suspect a fatty tumor/lipoma. If there is growth or the area remains symptomatic, consider further CT or small [id number] MRI evaluation and possible surgical excision.
== END | disposition home or self-care (01) ==
LOC: RADUSWWP 09:45
PROVIDERS: ATTEND Family Medicine
DX: R22.2 Localized swelling, mass and lump, trunk (principal)

== ENCOUNTER → 2021-09-06 | Outpatient (CLI) | payer OTHER ==
--- NOTE | 2021-09-06 07:20 | MR ---
EXAMINATION TYPE: MR lumbar spine wo con DATE OF EXAM: 09/06/2021 COMPARISON: CT abdomen and pelvis October 06, 2020. Ultrasound back to July 20, 2021 HISTORY: LUMP ON BACK, RIGHT SIDED BACK PAIN TECHNIQUE: Multiplanar, multisequence imaging of the lumbar spine is performed without IV contrast. FINDINGS: Sagittal images of the lumbar spine show vertebral body heights and alignment to appear sat isfactory. Multilevel disc desiccation with sparing of L3-L4 and L5-S1 levels. Disc space heights are maintained. The conus medullaris is normal in position and signal ending at L1-L2 disc space level. The bone marrow signal intensity is within normal limits. Axial images show T12-L1 level to appear within normal limits. Axial images at L1-L2 level show mild broad disc bulge with right paracentral disc protrusion compone nt mildly effaces the anterior thecal sac. Patent bilateral neural foramina. Axial images at L2-L3 level show tiny central disc protrusion minimally effacing the anterior thecal sac. Patent bilateral neural foramina. Axial images at L3-L4 level appear within normal limits. Axial images at L4-L5 level shows mild broad-based disc bulge minimally effacing the anterior thecal sac and causing mild left-sided anterior inferior neural foraminal narrowing. Axial images at L5-S1 level appear within normal limits. No suspicious retroperitoneal findings. Imaging extends to roughly S2-S3 level without suspicious pos terior mass or fluid collection identified just right of midline. IMPRESSION: As above. Mild multilevel degenerative changes. Uncertain if sonographic area of concern included in [id number].
== END | disposition home or self-care (01) ==
LOC: RADMRIMAIN 05:53
PROVIDERS: ATTEND Family Medicine
DX: M47.26 Other spondylosis with radiculopathy, lumbar region (principal)
CPT/HCPCS: 72148

== ENCOUNTER 2021-11-05 12:23 | Day surgery (SDC) | payer OTHER ==
[~2021-11-05 12:23] MED LIST changes: +ACETAMINOPHEN TAB 500 MG TAB PO PRN; +DEXAMETHASONE SOD PHOSPHATE 4 MG/ML 1 ML VIAL IV ONE; +HEPARIN SODIUM,PORCINE/PF 5,000 UNIT/0.5 ML SYRINGE SQ PRN; -LIDOCAINE 1% (10MG/ML) FOR IV START INTRADERMA PRN; -LIDOCAINE 1% INJ 10MG/ML (20 ML MDV) ONE; +MIDAZOLAM 2 MG/2 ML VIAL IV PRN; +ONDANSETRON 4 MG/2 ML VIAL IVP ONE; -PROPOFOL 10 MG/ML 20 ML VIAL IV ONE; +Pre Op ABX Message 1 EACH MISC MISCELLANE ONE; +SCOPOLAMINE 1 MG/72 HR PATCH TRANSDERM ONE; +fentaNYL (PF) 50 MCG/ML 2 ML AMP IV PRN
[2021-11-05] MEDS ORDERED: LACTATED RINGERS 1,000 ML IV ONE (12:38)
[2021-11-05 12:50] VITALS: RESP 16
[2021-11-05 13:00] LABS: Glucose,Whole Blood 94 mg/dL (70-110)
[2021-11-05] MEDS ORDERED: PROPOFOL 10 MG/ML 20 ML VIAL IV ONE (14:24)
[2021-11-05] MEDS ORDERED: MIDAZOLAM 2 MG/2 ML VIAL ONE (14:24)
[2021-11-05] MEDS ORDERED: fentaNYL (PF) 50 MCG/ML 2 ML AMP ONE (14:24)
[2021-11-05] MEDS ORDERED: KETOROLAC 15 MG/ML 1 ML VIAL ONE (14:24)
[2021-11-05] MEDS ORDERED: KETAMINE 10 MG/ML 20 ML VIAL ONE (14:24)
[2021-11-05] MEDS ORDERED: LIDOCAINE 1% INJ 10MG/ML (30 ML VIAL-PF) SQ ONE (14:31)
[2021-11-05] MEDS ORDERED: ceFAZolin 1,000 MG VIAL IVPB ONE (14:51)
[2021-11-05 15:16] VITALS: TEMP 97.4
[2021-11-05] MEDS ORDERED: HYDROcodone/APAP 5-325MG 1 EACH TAB PO PRN (15:17)
[2021-11-05] MEDS ORDERED: NALOXONE 0.4 MG/ML 1 ML VIAL IV PRN (15:17)
--- NOTE | 2021-11-05 15:19 | P.OP ---
Date of Procedure: 11/05/21 Procedure(s) Performed: PREOPERATIVE DIAGNOSIS: Right back lipoma POSTOPERATIVE DIAGNOSIS: Same PROCEDURE: Excision right back lipoma with intermediate closure SURGEON: Rafi EBL: 10 mL ANESTHESIA: Sedation and local COMPLICATIONS: None OPERATIVE PROCEDURE: Patient placed in the left decubitus position. The right lower breast was prepped and draped sterilely. A horizontal incision was made overlying the palpable mass. Dissection through these cutaneous tissues took place using electrocautery. The lipomatous mass was fully excised using electrocautery. This measured 6 x 4 cm. No further lipomatous tissue was suspicious or excised. Subcutaneous tissues closed using 3-0 Vicryl sutures. Skin closed using a running 4-0 Monocryl suture. Skin glue applied. Length of intermediate closure 4 cm DISPOSITION: Stable to recovery room
[2021-11-05 16:24] VITALS: BP 113/76; PULSE 69
== END 2021-11-05 16:39 | disposition home or self-care (01) ==
LOC: OR 12:23
PROVIDERS: ATTEND Surgery
DX: D17.1 Benign lipomatous neoplasm of skin and subcutaneous tissue of trunk (principal); K21.9 Gastro-esophageal reflux disease without esophagitis; Z88.0 Allergy status to penicillin; Z87.891 Personal history of nicotine dependence; F31.9 Bipolar disorder, unspecified
CPT/HCPCS: 21931; 88304; 12032; J2250; J1100; J2405; J0690; J2001; J3010; J1885; J2704; J1644

== ENCOUNTER 2022-11-04 06:11 | Day surgery (SDC) | payer OTHER ==
[2022-10-31 15:08] VITALS: BMI 25.1
--- NOTE | 2022-11-03 16:03 | P.GSHP ---
History of Present Illness H&P Date: 11/03/22 Chief Complaint: Back lipoma 41-year-old female known to our service. Please refer to history from September. Patient has increasing swelling and pain left lower back. Similar to the lipoma that was present on the right-hand side. Patient's symptoms resolved after previous lipoma excision on the right. Past Medical History Past Medical History: GERD/Reflux Additional Past Medical History / Comment(s): nephrolithiasis, pain to lower back due to lipoma. History of Any Multi-Drug Resistant Organisms: None Reported Past Surgical History: Cholecystectomy, Hysterectomy, Orthopedic Surgery Additional Past Surgical History / Comment(s): scope of left knee, RT LOWER BACK LIPOMA Past Anesthesia/Blood Transfusion Reactions: No Reported Reaction Smoking Status: Current every day smoker - Past Family History Mother Family Medical History: No Reported History Father Family Medical History: No Reported History Medications and Allergies Home Medications Medication Instructions Recorded Confirmed Type Omeprazole 20 mg PO DAILY 10/03/19 10/31/22 History Vortioxetine Hydrobromide 10 mg PO QAM 10/03/19 10/31/22 History [Trintellix] ARIPiprazole [Abilify] 10 mg PO DAILY 10/06/20 10/31/22 History Dextroamphetamine/Amphetamine 10 mg PO BID 10/06/20 10/31/22 History [Adderall Xr] Ibuprofen [Motrin Ib] 400 mg PO Q8H PRN 10/06/20 10/31/22 History buPROPion HCL [buPROPion HCL Xl] 150 mg PO DAILY 10/06/20 10/31/22 History busPIRone HCL 15 mg PO HS 10/06/20 10/31/22 History HYDROcodone/APAP 5-325MG [M[place]racken 1 tab PO Q6HR PRN 3 Days #6 tab 11/05/21 10/31/22 Rx 5-325] Allergies Allergy/AdvReac Type Severity Reaction Status Date / Time amoxicillin Allergy Unknown Verified 10/31/22 14:57 Childhood Penicillins Allergy Unknown Verified 10/31/22 14:57 Childhood tramadol HCl [From Ultram] Allergy Dyspnea Verified 10/31/22 14:57 Surgical - Exam Physical exam: General: Well-developed, well-nourished HEENT: Normocephalic, sclerae nonicteric Abdomen: Nontender, nondistended Extremities: No edema, left lower back with 4 x 3 cm lipoma Neuro: Alert and oriented Assessment and Plan (1) Lipoma of back Narrative/Plan: 41-year-old female with lower back lipoma. We'll proceed with excision left lower back lipoma tomorrow. Risks of bleeding, infection, scarring, numbness, nerve injury, recurrence, seroma, dimpling reviewed. She understands and wishes to proceed. Status: Acute Code(s): D17.1 - BENIGN LIPOMATOUS NEOPLASM OF SKIN, SUBCU OF TRUNK SNOMED Code(s): 903631617
[~2022-11-04 06:11] MED LIST changes: +LIDOCAINE 1% (10MG/ML) FOR IV START INTRADERMA PRN; -MIDAZOLAM 2 MG/2 ML VIAL IV PRN; -SCOPOLAMINE 1 MG/72 HR PATCH TRANSDERM ONE; -fentaNYL (PF) 50 MCG/ML 2 ML AMP IV PRN
[2022-11-04] MEDS ORDERED: LACTATED RINGERS 1,000 ML IV ONE (06:53)
[2022-11-04] MEDS ORDERED: HYDROmorphone 0.5 MG/0.5 ML SYRINGE IVP PRN (07:00)
[2022-11-04] MEDS ORDERED: MIDAZOLAM 2 MG/2 ML VIAL ONE (07:23)
[2022-11-04] MEDS ORDERED: fentaNYL (PF) 50 MCG/ML 2 ML AMP ONE (07:23)
[2022-11-04] MEDS ORDERED: KETAMINE HCL IN 0.9 % NACL 50 MG/5 ML SYRINGE ONE (07:23)
[2022-11-04] MEDS ORDERED: KETOROLAC 30 MG/ML 1 ML VIAL ONE (07:23)
[2022-11-04] MEDS ORDERED: SODIUM CHLORIDE 0.9% 100 ML with ceFAZolin 2,000 MG IV ONE ×2 (07:23)
[2022-11-04] MEDS ORDERED: PROPOFOL 10 MG/ML 20 ML VIAL IV ONE (07:23)
[2022-11-04] MEDS ORDERED: BUPIVACAINE (PF) 0.25% 30 ML VIAL SQ ONE (07:43)
[2022-11-04] MEDS ORDERED: ACETAMINOPHEN TAB 325 MG TAB PO PRN (08:06)
[2022-11-04] MEDS ORDERED: NALOXONE 0.4 MG/ML 1 ML VIAL IV PRN (08:06)
--- NOTE | 2022-11-04 08:10 | P.OP ---
Date of Procedure: 11/04/22 Procedure(s) Performed: PREOPERATIVE DIAGNOSIS: Left lower back lipoma POSTOPERATIVE DIAGNOSIS: Same PROCEDURE: Excision left lower back lipoma, intermediate closure SURGEON: Rafi EBL: 10 mL ANESTHESIA: Sedation and local COMPLICATIONS: None OPERATIVE PROCEDURE: Patient place in the right decubitus position. The left lower back was prepped and draped sterilely. An oblique incision was made overlying the palpable mass after localizing. There were 2 separate lipomatous masses excised. Old measuring about 4 x 4 centimeters in size. These are sent to pathology. No additional suspicious lipomatous tissue was noted. Bleeding controlled using electrocautery. Area irrigated. Subcutaneous layer was closed using a 3-0 Vicryl's. Skin closed using a running 4-0 Monocryl circular stitch. Skin glue and sterile dressing applied. DISPOSITION: Stable to recovery room
[2022-11-04] MEDS ORDERED: IV FLUID CONTINUATION 200 ML IV ONE (08:15)
[2022-11-04 08:23] VITALS: TEMP 97
[2022-11-04 08:33] VITALS: BP 131/85; PULSE 76; RESP 18
== END 2022-11-04 08:52 | disposition home or self-care (01) ==
LOC: OR 06:11
PROVIDERS: ATTEND Surgery
DX: D17.1 Benign lipomatous neoplasm of skin and subcutaneous tissue of trunk (principal); K21.9 Gastro-esophageal reflux disease without esophagitis; F17.200 Nicotine dependence, unspecified, uncomplicated; Z88.0 Allergy status to penicillin; Z88.6 Allergy status to analgesic agent; Z79.899 Other long term (current) drug therapy; Z90.49 Acquired absence of other specified parts of digestive tract
CPT/HCPCS: 21930; 88304; J2250; J1100; J2405; J0690; J3010; J1885; J2704; J0665

== ENCOUNTER 2024-08-22 07:18 | Day surgery (SDC) | payer OTHER ==
[2024-08-21 10:46] VITALS: BMI 31.1
[2024-08-22] MEDS ORDERED: LACTATED RINGERS 1,000 ML IV SCH (07:38)
[2024-08-22 07:54] VITALS: TEMP 97.2
[2024-08-22] MEDS: IV FLUID CONTINUATION 1,000 ML IV ONE (07:59)
[2024-08-22] MEDS ORDERED: GLYCOPYRROLATE 0.2 MG/ML 2 ML VIAL ONE (08:01)
[2024-08-22] MEDS ORDERED: PROPOFOL 10 MG/ML 20 ML VIAL IV ONE (08:01)
--- NOTE | 2024-08-22 08:32 | P.PCN ---
Date of Procedure: 08/22/24 Preoperative Diagnosis: Screening Family history of colon cancer Postoperative Diagnosis: Normal colon Family history colon cancer Internal hemorrhoids Procedure(s) Performed: Colonoscopy Anesthesia: MAC Surgeon: Alma García Pathology: none sent Condition: stable Disposition: same day Indications for Procedure: 43-year-old female presents today for colonoscopy. She does have family history of colonoscopy with her father who was diagnosed and in his 70s. Denies any blood in his stool. No additional complaints. Risks, benefits and alternatives were provided. All questions answered prior to attending the operative suite. Operative Findings: Internal hemorrhoids Description of Procedure: The patient was brought to the endoscopy suite and placed in left lateral decubitus position and adequate sedation was achieved using conscious sedation. Digital rectal exam was performed and mild internal hemorrhoids were palpated. An endoscope was then placed in the rectum and advanced to the cecum as identified by landmarks including the appendiceal orifice and the ileocecal valve. The prep was good. The colonoscope was then slowly withdrawn, examining for any mucosal abnormalities. The cecum, ascending, transverse, descending and sigmoid colon were visualized adequately. There were no large neoplastic lesions noted of the colon. No obvious polyps noted throughout the colon. No significant evidence of diverticulosis, colon was somewhat redundant. Hemostasis was maintained. Retroflexion was performed in the rectum and internal hemorrhoid. Excess air was removed, the colonoscope withdrawn and the procedure terminated. The patient was then transferred to the recovery unit in stable condition. Repeat colonoscopy should be performed in 5 years.
[2024-08-22 08:57] VITALS: BP 122/88; PULSE 88; RESP 16
== END 2024-08-22 09:10 | disposition home or self-care (01) ==
LOC: ORWHC2ENDO 07:18
PROVIDERS: ATTEND Surgery
DX: Z12.11 Encounter for screening for malignant neoplasm of colon (principal); K64.8 Other hemorrhoids; F19.10 Other psychoactive substance abuse, uncomplicated; Z79.899 Other long term (current) drug therapy; Z87.891 Personal history of nicotine dependence; Z80.0 Family history of malignant neoplasm of digestive organs; Z88.0 Allergy status to penicillin; Z88.8 Allergy status to other drugs, medicaments and biological substances
CPT/HCPCS: 45378; J2704; J1596